=== PATIENT | male | born 1985 | race Two or more races ===

== ENCOUNTER 2020-10-12 20:24 | Emergency (ER) | payer OTHER ==
[~2020-10-12] VITALS: Ht 170.2 cm; Wt 73.5 kg
--- NOTE | 2020-10-12 21:07 | NUR ---
Pt states having right sided neck swelling. Saw tele doc x 1 day ago, was started on abx. Pt continues ot have swelling and a stated fever of 103 today. Pt has been taking abx, motrin, and tylenol. Pt with patent airway, no difficulty swallowing or breathing.
[2020-10-12 21:17] LABS: BASOPHILS % (AUTO) 0 % (0-1); EOSINOPHILS % (AUTO) 0 % (1-7); LYMPHOCYTES % (AUTO) 23 % (22-44); MEAN CORPUSCULAR HGB CONC 34.9 g/dL (33.2-36.2); MEAN PLATELET VOLUME 8.6 fL (7.4-10.4); MONOCYTES % (AUTO) 11 % (2-9); NEUTROPHILS % (AUTO) 65 % (42-75); PLATELET COUNT 132 x10^3/uL (130-400); RED BLOOD COUNT 5.14 x10^6/uL (4.38-5.82); RED CELL DISTRIBUTION WIDTH 13.1 % (9.4-14.8)
[2020-10-12 21:19] LABS: MD NO
[2020-10-12 22:06] VITALS: BP 113/78
--- NOTE | 2020-10-12 22:07 | NUR ---
DC'd with written and verbal instructions. Pt states understanding. Medications and dx gone over with patient. Pt ambulatory out of ED without difficulty.
== END 2020-10-12 22:09 | disposition home or self-care (01) ==
LOC: ED 21:18
DX: L04.0 Acute lymphadenitis of face, head and neck (principal); J00 Acute nasopharyngitis [common cold]; J45.909 Unspecified asthma, uncomplicated; R50.9 Fever, unspecified; M79.89 Other specified soft tissue disorders
CPT/HCPCS: 36415; 85025; 99283

== ENCOUNTER 2020-10-14 11:17 | Emergency (ER) | payer OTHER ==
[~2020-10-14] VITALS: Ht 165.1 cm; Wt 72.2 kg
--- NOTE | 2020-10-14 12:00 | NUR ---
Note braeden in ED - 10/14/20 at 1234 by JESSICA pt in bed, vss, ua sent, pt states pressure in her chest then has blurry vision for the last week.
[2020-10-14] MEDS ORDERED: ACETAMINOPHEN 325 MG TABLET ONE (12:13)
--- NOTE | 2020-10-14 12:20 | NUR ---
pt in bed. admin meds. first contact
[2020-10-14 12:25] LABS: BASOPHILS % (AUTO) 1 % (0-1); EOSINOPHILS % (AUTO) 0 % (1-7); LYMPHOCYTES % (AUTO) 13 % (22-44); MEAN CORPUSCULAR HEMOGLOBIN 29.1 pg (27.5-34.5); MEAN PLATELET VOLUME 8.5 fL (7.4-10.4); MONOCYTES % (AUTO) 7 % (2-9); NEUTROPHILS % (AUTO) 80 % (42-75); PLATELET COUNT 142 x10^3/uL (130-400); RED BLOOD COUNT 5.25 x10^6/uL (4.38-5.82); RED CELL DISTRIBUTION WIDTH 13.2 % (9.4-14.8)
[2020-10-14] MEDS ORDERED: ACETAMINOPHEN 325 MG TABLET PO ONE (12:30)
[2020-10-14 12:35] LABS: ALANINE AMINOTRANSFERASE 47 U/L (12-78); ALBUMIN 3.9 g/dL (3.4-5.0); ANION GAP 9 mmol/L (5-15); CALCIUM 8.5 mg/dL (8.5-10.1); CHLORIDE 104 mmol/L (98-107)
[2020-10-14 12:36] LABS: MD NO
[2020-10-14 12:38] LABS: ALKALINE PHOSPHATASE 66 U/L (45-117); BILIRUBIN,TOTAL 0.9 mg/dL (0.2-1.0); CREATININE 1.23 mg/dL (0.7-1.3); TOTAL PROTEIN 7.7 g/dL (6.4-8.2)
[2020-10-14] MEDS ORDERED: PLEASE ENTER ALLERGIES MC SCH (13:00)
[2020-10-14 13:37] VITALS: BP 109/62
[2020-10-14] MEDS ORDERED: OMNIPAQUE 350 MG/ML, 100ML BOTTLE ONE (14:15)
--- NOTE | 2020-10-14 15:36 | NUR ---
pt walked out self with steady gait. if s&s worsen return to er
== END 2020-10-14 15:40 | disposition home or self-care (01) ==
LOC: ED 12:23
DX: L04.0 Acute lymphadenitis of face, head and neck (principal); K11.20 Sialoadenitis, unspecified; R50.9 Fever, unspecified; J45.909 Unspecified asthma, uncomplicated
CPT/HCPCS: 36415; 70491; 80053; 85025; 86308; 87081; 87880; 99285; Q9967

== ENCOUNTER 2020-11-30 18:02 | Emergency (ER) | payer OTHER ==
[~2020-11-30] VITALS: Ht 165.1 cm; Wt 67.0 kg
--- NOTE | 2020-11-30 19:20 | NUR ---
PT WENT TO CT.
--- NOTE | 2020-11-30 19:26 | NUR ---
PT STATES STARTED BACK OCT 12 HAD SOME NECK PAIN AND WAS TREATED WITH AN ANTIBIOTIC CEFLAXIN THAT DIDN'T WORK. WAS THEN TREATED WITH AUMENTIN FOR 7 DAYS WHICH ENDED WITH A SLIGHT RASH. ABOUT 2 WEEKS AGO HAD LEFT SCROTUM PAIN THAT MOVED TO THE RIGHT THIS LASTED ABOUT A WEEK THEN 3 DAYS AGO HAD A ROSARIO THAT PROGRESSIVELY GOT WORSE WAS PRESCRIBED PREDINISONE THAT HAS HELPED.
[2020-11-30] MEDS ORDERED: KETOROLAC 30 MG/1 ML IVPush ONE (19:30)
[2020-11-30] MEDS ORDERED: SODIUM CHLORIDE FLUSH 10ML SYR IVF ONE (19:30)
[2020-11-30] MEDS ORDERED: SODIUM CHLORIDE 0.9% 1,000 ML IV ONE (19:30)
[2020-11-30 19:31] LABS: HCT (SEDRATE) 45.3 % (39.2-51.8)
[2020-11-30 19:32] LABS: BASOPHILS % (AUTO) 0 % (0-1); EOSINOPHILS % (AUTO) 0 % (1-7); LYMPHOCYTES % (AUTO) 10 % (22-44); MEAN CORPUSCULAR HEMOGLOBIN 27.2 pg (27.5-34.5); MEAN CORPUSCULAR HGB CONC 33.3 g/dL (33.2-36.2); MEAN PLATELET VOLUME 8.2 fL (7.4-10.4); MONOCYTES % (AUTO) 2 % (2-9); NEUTROPHILS % (AUTO) 88 % (42-75); PLATELET COUNT 215 x10^3/uL (130-400); RED BLOOD COUNT 5.56 x10^6/uL (4.38-5.82); RED CELL DISTRIBUTION WIDTH 13.6 % (9.4-14.8)
[2020-11-30 19:40] LABS: MD NO
[2020-11-30 19:42] LABS: ALBUMIN 3.9 g/dL (3.4-5.0); ANION GAP 5 mmol/L (5-15); CHLORIDE 103 mmol/L (98-107)
[2020-11-30 19:46] LABS: ALANINE AMINOTRANSFERASE 310 U/L (12-78); ALKALINE PHOSPHATASE 160 U/L (45-117); BILIRUBIN,TOTAL 0.9 mg/dL (0.2-1.0); C-REACTIVE PROTEIN, QUANT 0.43 mg/dL (0.02-0.49); CREATININE 1.12 mg/dL (0.7-1.3); TOTAL PROTEIN 8.6 g/dL (6.4-8.2)
[2020-11-30] MEDS ORDERED: KETOROLAC 30 MG/1 ML ONE (19:46)
[2020-11-30] MEDS ORDERED: DIPHENHYDRAMINE 50 MG/ML, 1ML ONE (19:47)
[2020-11-30] MEDS ORDERED: PROCHLORPERAZINE 5 MG/ML, 2ML ONE (19:48)
[2020-11-30] MEDS ORDERED: PROCHLORPERAZINE 5 MG/ML, 2ML IV ONE (20:00)
[2020-11-30] MEDS ORDERED: DIPHENHYDRAMINE 50 MG/ML, 1ML IV ONE (20:00)
--- NOTE | 2020-11-30 20:39 | NUR ---
PT TOLERATED MEDS WELL AND STATED HAS 0/10 PAIN. VSS. CALL REMOTE WITHIN REACH.
--- NOTE | 2020-11-30 22:05 | NUR ---
PT AT BEDSIDE LYING FLAT AFTER LP STATES IS IN NO PAIN AT THIS TIME. VSS. CALL REMOTE WITH IN REACH.
[2020-11-30 22:35] LABS: GLUCOSE, CSF 53 mg/dL (40-80); TOTAL PROTEIN,CSF 61 mg/dL (15-45)
--- NOTE | 2020-11-30 22:45 | NUR ---
PT LYING IN BED RESTING. VSS. CALL REMOTE ALEJANDRAIN CARLOS.
[2020-11-30 23:53] VITALS: BP 116/75
== END 2020-12-01 | disposition home or self-care (01) ==
LOC: ED 18:37
DX: A87.9 Viral meningitis, unspecified (principal); R51.9 Headache, unspecified
CPT/HCPCS: 36415; 62328; 70450; 80053; 82945; 84157; 85025; 85651; 86140; 86308; 87070; 87205; 87252; 89051; 96361; 96374; 96375; 99285; J0780; J1200; J1885; J7030

== ENCOUNTER 2020-12-04 12:00 | Emergency (ER) | payer OTHER ==
[~2020-12-04] VITALS: Ht 165.1 cm; Wt 67.5 kg
--- NOTE | 2020-12-04 12:09 | NUR ---
Pt ambulatory with steady gait to room
--- NOTE | 2020-12-04 12:33 | NUR ---
Pt had lumbar puncture on 11/30 and has a ROSARIO that is a 1 when lying down and 10 when sitting up. Pain from ROSARIO occured sunday. VSS, NADN, pt lying flat. Pt said pain is unrelieved by Advil. A&O x4, speaking in full sentences, able to move all extremities. Connected to BP and O2 monitors.
--- NOTE | 2020-12-04 13:32 | NUR ---
dr saavedra at bedside to preform blood patch
--- NOTE | 2020-12-04 13:43 | NUR ---
Pt placed flat on back with pillows under both knees, will remain in this position for [address] Kaur
--- NOTE | 2020-12-04 13:43 | NUR ---
Marixa deras in [facility] - 12/04/20 at 1343 by JO-ANN lumbar puncture done
--- NOTE | 2020-12-04 13:43 | NUR ---
blood patch done
--- NOTE | 2020-12-04 14:30 | NUR ---
pt states relief of ROSARIO after blood patch procedure
--- NOTE | 2020-12-04 14:44 | NUR ---
PT PLACED IN SEMIFOWLERS POSITION. LOUISN, CARLO.
--- NOTE | 2020-12-04 14:51 | NUR ---
No complaints of ROSARIO after being sat up, pt to restroom
[2020-12-04 15:19] VITALS: BP 120/80
--- NOTE | 2020-12-04 15:21 | NUR ---
TANNA RN: PT DISCHARGED FOR PRIMARY RN. NO ACUTE DISTRESS NOTED. VS STABLE. PT VERBALIZES DISCHARGE INSTRUCTIONS. PT DISCHARGED PER DR HILLS.
== END 2020-12-04 15:23 | disposition home or self-care (01) ==
LOC: ED 15:15
DX: G97.1 Other reaction to spinal and lumbar puncture (principal); J45.909 Unspecified asthma, uncomplicated
CPT/HCPCS: 99285